=== PATIENT | male | born 1960 | race Caucasian/White ===

== ENCOUNTER 2021-02-08 11:41 | Emergency (ER) | payer MEDICARE ==
[~2021-02-08] VITALS: Ht 185.4 cm; Wt 91.0 kg
--- NOTE | 2021-02-08 11:48 | PHYS DOC ---
Adult General Chief Complaint Chief Complaint: MECHANICAL FALL HPI HPI Patient is a 60-year-old male who presents via EMS for left hip pain. This is a chronic issue. He had a total left hip replacement at [facility] years ago he says that was uncomplicated. Nonetheless, over the last several years he has had ongoing chronic left-sided hip pain. [facility]. He reports he occasionally takes Tylenol but typically drinks to numb the pain. Reports he drinks 3 beers prior to arrival today. Denies any falls or trauma or any inciting event or mechanism of injury to exacerbate his underlying chronic pain. States he just could not take it today prompting him to call EMS for transport to our facility. He does disclose that he was seen at local [place] in [place] 4 days prior and had comprehensive work-up in ER that involved labs and imaging techniques that were nonconcerning for any emergent or surgical issues. He states they did nothing for him and does not want to go back there. He is asking for oxycodone Review of Systems Review of Systems Fourteen body systems of review of systems have been reviewed. See HPI for pertinent positives and negative responses, other sultana all other systems are negative, non-pertinent or non-contributory during my food Physical Exam Physical Exam Constitutional: Appears disheveled, frail and malnourished, acutely intoxicated on exam HENT: Normocephalic, atraumatic, bilateral external ears normal, oropharynx moist, no oral exudates, nose normal. Poor dentition, smells of alcohol Eyes: PERRLA, EOMI, conjunctiva normal, no discharge. Neck: Normal range of motion, no tenderness, supple, no stridor. Cardiovascular: Heart rate regular, sinus rhythm, no murmurs rubs or gallops Lungs & Thorax: Bilateral breath sounds clear to auscultation, no respiratory distress Abdomen: Bowel sounds normal, soft, no tenderness, no masses, no pulsatile mass es. Nonsurgical abdomen, no peritoneal signs Skin: Warm, dry, no erythema, no rash. Back: No tenderness, no CVA tenderness. Extremities: No point or bony tenderness, no cyanosis, no clubbing, ROM intact, no edema. No issues with internal or external rotations of bilateral lower extremities Neurologic: Alert and oriented X 3, grossly normal motor & sensory function, no focal deficits noted. Psychologic: Affect normal, mood normal. Current Patient Data Vital Signs Vital Signs Date Time Temp Pulse Resp B/P (MAP) Pulse Ox O2 Delivery O2 Flow Rate FiO2 02/08/21 11:50 98.5 93 16 135/84 95 Room Air Vital Signs Date Time Temp Pulse Resp B/P (MAP) Pulse Ox O2 Delivery O2 Flow Rate FiO2 02/08/21 11:50 98.5 93 16 135/84 95 Room Air EKG EKG [] Radiology/Procedures Radiology/Procedures [] Heart Score C/O Chest Pain: No Risk Factors: Risk Factors: DM, Current or recent (<one month) smoker, HTN, HLP, family history of CAD, obesity. Risk Scores: Risk Factors: DM, Current or recent (<one month) smoker, HTN, HLP, family history of CAD, obesity. Course & Med Decision Making Course & Med Decision Making ABCs unremarkable. I disclosed entirety of ER findings and discussed most likely diagnosis of chronic left hip pain. I discussed and offered repeating certain aspects of prior ER visit exam such as labs and radiographs but given that patient has had no exacerbating mechanism of injury, trauma or other concerning exposure, he deferred. I disclosed I would not be giving oxycodone to him given his intoxicated state. I tried to address his ongoing alcohol abuse but patient reports he is not going to quit, he does not have any SI/HI. I again offered continued ER work-up but patient agitated and expressing that he wants to leave, despite him being intoxicated he does demonstrate full capacity. Plan of care discussed at length with need for close outpatient follow-up to review today's ER visit stressed. I advised he contact his [facility] for close outpatient follow-up. Strict return precautions were also discussed at length with good understanding by patient. Patient voiced understanding and agreement with the plan. Patient knows to come back for repeat evaluation if concerning signs or symptoms present prior to outpatient follow-up. Hemodynamically stable, ambulatory and well-appearing at time of disposition. Dragon Disclaimer Dragon Disclaimer This electronic medical record was generated, in whole or in part, using a voice recognition dictation system. Departure Departure: Impression: Primary Impression: Chronic left hip pain Additional Impression: Alcohol abuse Disposition: HOME / SELF CARE / HOMELESS Condition: STABLE Patient Instructions: Alcohol Intoxication Additional Instructions: You were seen for chronic pain of your left hip. I advise you contact your [place] primary care physician and discussed need for outpatient orthopedic referral for evaluation given your ongoing chronic pain to your left side which is where you had prior hip replacement. I also recommend you safely cut back on your alcohol abuse as ongoing use in excess has lots of short and long-term consequences. You should return to the ED if you develop worsening pain, fever, numbness, tingling, weakness, or any other new or concerning symptoms. Problem Qualifiers YOHANA BARNHART DO Feb 08, 2021 11:48
[2021-02-08 11:50] VITALS: BP 135/84
== END 2021-02-08 11:50 | disposition home or self-care (01) ==
LOC: ER 11:41
DX: M25.552 Pain in left hip (principal); G89.29 Other chronic pain; F10.10 Alcohol abuse, uncomplicated; Z96.642 Presence of left artificial hip joint
CPT/HCPCS: 99283-25

== ENCOUNTER 2021-04-21 21:38 | Emergency (ER) | payer MEDICARE ==
[~2021-04-21] VITALS: Ht 185.4 cm; Wt 91.0 kg
[2021-04-21] MEDS: IV RINGERS SOLUTION,LACTATED 1,000 ML IV SCH ×2 (22:30→23:21)
[2021-04-21 22:40] VITALS: BP 135/84
[2021-04-21] MEDS ORDERED: MVI, ADULT NO.4 WITH VIT K 10 ML, THIAMINE INJ 100 MG in IV RINGERS SOLUTION,LACTATED 1... IV ONE (23:00)
[2021-04-21] MEDS ORDERED: IV RINGERS SOLUTION,LACTATED 1,000 ML IV ONE (23:00)
[2021-04-21 23:01] LABS: BASO # 0.1 x10^3/uL (0.0-0.2); BASO % 3 % (0-3); EOS # 0.1 x10^3/uL (0.0-0.7); EOS % 1 % (0-3); HEMATOCRIT 40.4 % (39.0-53.0); HEMOGLOBIN 13.5 g/dL (13.0-17.5); LYMPH % 21 % (24-48); MEAN CORPUSCULAR HEMOGLOBIN 33 pg (25-35); MEAN CORPUSCULAR HGB CONC 33 g/dL (31-37); MEAN CORPUSCULAR VOLUME 100 fL (79-100); MONO # 0.8 x10^3/uL (0.0-1.1); MONO % 16 % (0-9); NEUT # 2.9 x10^3uL (1.8-7.7); NEUT % 59 % (31-73); PLATELET COUNT 208 x10^3/uL (140-400); RED BLOOD COUNT 4.06 x10^6/uL (4.30-5.70); RED CELL DISTRIBUTION WIDTH 15.1 % (11.5-14.5)
--- NOTE | 2021-04-21 23:10 | RAD ---
Exam: Chest one view INDICATION: Dyspnea TECHNIQUE: Frontal view of the chest Comparisons: None FINDINGS: The cardiomediastinal silhouette and pulmonary vessels are within normal limits. The lung and pleural spaces are clear. IMPRESSION: No acute cardiopulmonary process. Electronically signed by: Yani Zamora MD (04/21/2021 11:08 PM) AREN
[2021-04-21 23:15] LABS: BARBITURATES NEG (NEG); BENZODIAZEPINES NEG (NEG); CANNABINOIDS NEG (NEG); COCAINE POS (NEG); METHADONE NEG (NEG); OPIATES NEG (NEG); PHENCYCLIDINE NEG (NEG)
[2021-04-21 23:22] LABS: AMPHETAMINE/METHAMPHETAMINE NEG (NEG)
[2021-04-21 23:35] LABS: CREATININE 0.6 mg/dL (0.7-1.3); GFR 137.4; POTASSIUM 4.3 mmol/L (3.5-5.1)
[2021-04-21 23:41] LABS: ALBUMIN 3.9 g/dL (3.4-5.0); DIRECT BILIRUBIN 0.1 mg/dL (0.0-0.2); MAGNESIUM 2.3 mg/dL (1.8-2.4); TOTAL BILIRUBIN 0.3 mg/dL (0.2-1.0); TOTAL PROTEIN 7.1 g/dL (6.4-8.2)
[2021-04-22 00:08] LABS: CLARITY,URINE CLEAR; COLOR,URINE YELLOW
[2021-04-22 00:09] LABS: BACTERIA,URINE MOD /HPF (0-FEW); BILIRUBIN,URINE NEG (NEG); GLUCOSE,URINE NEG (NEG); NITRITE,URINE NEG (NEG); SQUAMOUS EPITHELIAL CELL,UR FEW /LPF; UROBILINOGEN,URINE 0.2 mg/dL (0.2 mg/dL)
--- NOTE | 2021-04-22 04:28 | PHYS DOC ---
Past History Past Medical History: Alcoholism Additional Past Medical Histor: Chronic hip pain Past Surgical History: No Surgical History Alcohol Use: Heavy General Adult EDM: Chief Complaint: ALCOHOL INTOXICATION HPI: HPI: " Residential Substance Abuse Counselor said I could get admitted here for my alcohol rehab... ". " I ve been drinking for years.. I drink about a fifth of vodka a day... I do smoke... And sometimes negative other drugs... I used to go to the [place] but they are not excepting people right now..." Patient is a 60 year old male who presents with with request for admission for alcohol rehab. Patient denies he has been drinking every ever since he was in the service. Currently he uses up to a maximum of 1 L of vodka a day. Patient does smoke. And has used other illicit substances. No recent travel. No specific ill contacts. Has not gotten flu vaccination. Has not gotten Covid vaccination. Patient denies any history immunosuppression. Patient denies any homicidal or suicidal ideation. Denies any history of alcohol withdrawal seizures. Review of Systems: Review of Systems: Constitutional: Denies fever or chills Eyes: Denies change in visual acuity HENT: Denies nasal congestion or sore throat Respiratory: Denies cough or shortness of breath Cardiovascular: Denies chest pain or edema GI: Denies abdominal pain, nausea, vomiting, bloody stools or diarrhea : Denies dysuria Musculoskeletal: Denies back pain or joint pain Integument: Denies rash Neurologic: Denies headache, focal weakness or sensory changes Endocrine: Denies polyuria or polydipsia Lymphatic: Denies swollen glands Psychiatric: Denies depression or anxiety. Requesting admission for alcohol withdrawal Family History: Family History: Noncontributory presentation Current Medications: Current Meds: Current Medications Medications (Trade) Dose Ordered Sig/Salma Start Time Stop Time Status Last Admin Dose Admin Lactated Ringer's 1,000 ml @ 1,000 mls/hr Q1H 04/21/21 22:30 04/21/21 23:25 DC 04/21/21 22:30 1,000 MLS/HR Multivitamins/ Minerals 10 ml/ Thiamine HCl 100 mg/Lactated Ringer's 1,011.3 ml @ 1,011.3 mls/hr 1X ONCE 04/21/21 23:00 04/21/21 23:25 DC Allergies: Allergies: Allergies Coded Allergies Type Severity Reaction Last Updated Verified lamotrigine Allergy Unknown 02/08/21 Yes Physical Exam: PE: Constitutional:, no acute distress, intoxicated in appearance. [] Has a smell of alcoholic beverage on his breath. HENT: Normocephalic, atraumatic, bilateral external ears normal, oropharynx moist, no oral exudates, nose mildly injected turbinates Eyes: PERRLA, EOMI, conjunctiva injected, no discharge. [] Neck: Normal range of motion, no tenderness, supple, no stridor. [] Cardiovascular: Tachycardia heart rate regular rhythm, no murmur [] bedside monitor shows sinus tachycardia Lungs & Thorax: Bilateral breath sounds equal apex with scattered wheezes on auscultation [] Abdomen: Bowel sounds normal, soft, no tenderness, no masses, no pulsatile masses. Large scar across his mid abdomen near umbilicus.-Advised he got this as a child for hernia repair Skin: Warm, dry, no erythema, no rash. [] Back: No tenderness, no CVA tenderness. [] Extremities: No tenderness, no cyanosis, no clubbing, ROM intact, no edema. [] Neurologic: Alert and oriented X 3, normal motor function, normal sensory function, no focal deficits noted. Patient is ambulatory without problems. S lightly off on balance. [id number]. No drift. Key Bed Installer equal. Slightly off on his [id number]. Psychologic: Affect flat, judgement appears to be mildly impaired, mood normal. [] Current Patient Data: Labs: Laboratory Tests Test 04/21/21 22:15 04/21/21 22:35 Urine Collection Type Unknown Urine Color Yellow Urine Clarity Clear Urine pH 7.0 Urine Specific [place] 1.020 Urine Protein Neg (NEG-TRACE) Urine Glucose (UA) Neg mg/dL (NEG) Urine Ketones (Stick) Neg mg/dL (NEG) Urine Blood Neg (NEG) Urine Nitrite Neg (NEG) Urine Bilirubin Neg (NEG) Urine Urobilinogen Dipstick 0.2 mg/dL (0.2 mg/dL) Urine Leukocyte Esterase Neg (NEG) Urine RBC 1-2 /HPF (0-2) Urine WBC 1-4 /HPF (0-4) Urine Squamous Epithelial Cells Few /LPF Urine Bacteria Mod /HPF (0-FEW) Urine Mucus Slight /LPF Urine Opiates Screen Neg (NEG) Urine Methadone Screen Neg (NEG) Urine Barbiturates Neg (NEG) Urine Phencyclidine Screen Neg (NEG) Urine Amphetamine/Methamphetamine Neg (NEG) Urine Benzodiazepines Screen Neg (NEG) Urine Cocaine Screen Pos (NEG) Urine Cannabinoids Screen Neg (NEG) Urine Ethyl Alcohol Pos (NEG) White Blood Count 5.0 x10^3/uL (4.0-11.0) Red Blood Count 4.06 x10^6/uL (4.30-5.70) L Hemoglobin 13.5 g/dL (13.0-17.5) Hematocrit 40.4 % (39.0-53.0) Mean Corpuscular Volume 100 fL (79-100) Mean Corpuscular Hemoglobin 33 pg (25-35) Mean Corpuscular Hemoglobin Concent 33 g/dL (31-37) Red Cell Distribution Width 15.1 % (11.5-14.5) H Platelet Count 208 x10^3/uL (140-400) Neutrophils (%) (Auto) 59 % (31-73) Lymphocytes (%) (Auto) 21 % (24-48) L Monocytes (%) (Auto) 16 % (0-9) H Eosinophils (%) (Auto) 1 % (0-3) Basophils (%) (Auto) 3 % (0-3) Neutrophils # (Auto) 2.9 x10^3uL (1.8-7.7) Lymphocytes # (Auto) 1.0 x10^3/uL (1.0-4.8) Monocytes # (Auto) 0.8 x10^3/uL (0.0-1.1) Eosinophils # (Auto) 0.1 x10^3/uL (0.0-0.7) Basophils # (Auto) 0.1 x10^3/uL (0.0-0.2) Activated Partial Thromboplast Time 25 SEC (23-33) Sodium Level 140 mmol/L (136-145) Potassium Level 4.3 mmol/L (3.5-5.1) Chloride Level 101 mmol/L (98-107) Carbon Dioxide Level 27 mmol/L (21-32) Anion Gap 12 (6-14) Blood Urea Nitrogen 3 mg/dL (8-26) L Creatinine 0.6 mg/dL (0.7-1.3) L Estimated GFR (Cockcroft-Gault) 137.4 Glucose Level 83 mg/dL (70-99) Calcium Level 9.0 mg/dL (8.5-10.1) Magnesium Level 2.3 mg/dL (1.8-2.4) Total Bilirubin 0.3 mg/dL (0.2-1.0) Direct Bilirubin 0.1 mg/dL (0.0-0.2) Aspartate Amino Transferase (AST) 77 U/L (15-37) H Alanine Aminotransferase (ALT) 76 U/L (16-63) H Alkaline Phosphatase 68 U/L (46-116) Creatine Kinase 77 U/L (39-308) UM-Cit-B-Type Natriuretic Peptide 149 pg/mL (0-124) H Total Protein 7.1 g/dL (6.4-8.2) Albumin 3.9 g/dL (3.4-5.0) Lipase 61 U/L (73-393) L Ethyl Alcohol Level 181 mg/dL (0-10) H Vital Signs: Vital Signs Date Time Temp Pulse Resp B/P (MAP) Pulse Ox O2 Delivery O2 Flow Rate FiO2 04/21/21 22:40 98.2 101 16 135/84 (101 98 Room Air EKG: EKG: My interpretation EKG shows a sinus rhythm at 90 bpm. No acute morphology. Time of EKG shows 22: 24 hours [] Radiology/Procedures: Radiology/Procedures: [][address] [address] IMAGING REPORT Signed PATIENT: LARRY CORDERO ACCOUNT: [id number] : 1960 LOCATION: ER AGE: 60 SEX: M EXAM STATUS: REG ER ORD. PHYSICIAN: PAMELA ANDREWS MD REASON: dyspnea PROCEDURE: PORTABLE CHEST 1V Exam: Chest one view INDICATION: Dyspnea TECHNIQUE: Frontal view of the chest Comparisons: None FINDINGS: The cardiomediastinal silhouette and pulmonary vessels are within normal limits. The lung and pleural spaces are clear. IMPRESSION: No acute cardiopulmonary process. Electronically signed by: Yani López MD (04/21/2021 11:08 PM) [facility] DICTATED AND SIGNED BY: YANI LÓPEZ MD DATE: 04/21/21 5855 CC: PAMELA ANDREWS MD; PCP,NO ~MTH0 0 Heart Score: C/O Chest Pain: No HEART Score for Chest Pain: HEART Score for Chest Pain Response (Comments) Value History Slighlty/Non-Suspicious 0 ECG Normal 0 Age >45 - < 65 1 Risk Factors 1 or 2 Risk Factors 1 Total 2 Risk Factors: Risk Factors: DM, Current or recent (<one month) smoker, HTN, HLP, family history of CAD, obesity. Risk Scores: Score 0 - 3: 2.5% MACE over next 6 weeks - Discharge Home Score 4 - 6: 20.3% MACE over next 6 weeks - Admit for Clinical Observation Score 7 - 10: 72.7% MACE over next 6 weeks - Early Invasive Strategies Course & Med Decision Making: Course & Med Decision Making Pertinent Labs and Imaging studies reviewed. (See chart for details) While waiting for labs to come back patient advised nursing to aid no longer wanted a work-up. Patient encouraged to keep follow-up at [place]. Patient encouraged to follow-up with [facility] [phone]. Patient advised to return anytime he wished to complete his evaluation and talk to a counselor about his alcohol withdrawal plans. Patient insistent on discharge. Patient amatory without problems. Patient encouraged to reduce his alcohol intake. Patient encouraged to avoid illicit drug use. Patient encouraged to stop smoking. Impression: 1. Alcohol abuse= tonight 181 2. Mild elevation LFTs AST 77, ALT is 76 3. Tobacco use 4. Drugs screen positive for cocaine use [] Dragon Disclaimer: Dragon Disclaimer: This electronic medical record was generated, in whole or in part, using a voice recognition dictation system. Departure Departure: Impression: Primary Impression: Alcohol abuse Disposition: HOME / SELF CARE / HOMELESS Condition: GUARDED Patient Instructions: Alcohol Intoxication Additional Instructions: Take a daily multivitamin. Consider follow up at [facility] - they have alcohol abuse programs. Consider follow up with [facility] [phone]. Return at any time if you whish to complete your evaluation. Dragon Disclaimer This chart was dictated in whole or in part using Voice Recognition software in a busy, high-work load, and often noisy Emergency Department environment. It may contain unintended and wholly unrecognized errors or omissions. PAMELA ANDREWS MD Apr 22, 2021 04:28
--- NOTE | 2021-04-23 03:55 | EKG ---
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
== END 2021-04-21 23:25 | disposition home or self-care (01) ==
LOC: ER 21:38
DX: F10.20 Alcohol dependence, uncomplicated (principal); G89.29 Other chronic pain; R79.89 Other specified abnormal findings of blood chemistry; F14.90 Cocaine use, unspecified, uncomplicated; Z72.0 Tobacco use; Z88.8 Allergy status to other drugs, medicaments and biological substances; Y90.6 Blood alcohol level of 120-199 mg/100 ml
CPT/HCPCS: 36415; 71045; 80048; 80076; 80307; 81001; 82550; 83690; 83735; 83880; 84443; 85025; 85730; 87086; 93005; 99285; G0480; J7120

== ENCOUNTER 2021-08-27 21:40 | Observation (INO) | payer MEDICARE ==
[~2021-08-27] VITALS: Ht 185.4 cm; Wt 68.7 kg
--- NOTE | 2021-08-27 22:47 | PHYS DOC ---
Past History Past Medical History: Alcoholism Additional Past Medical Histor: Chronic hip pain Past Surgical History: No Surgical History Alcohol Use: Heavy Adult General Chief Complaint Chief Complaint: ALCOHOL INTOXICATION HPI HPI Patient is a 60-year-old male with a past medical history significant for alcoholism who presents emergency department wanting resources to help him quit drinking. States he has been drinking 1/5 of vodka for several years, has gone through alcohol withdrawals and has had alcohol withdrawal seizures before. States he is afraid to quit drinking because of the withdrawals. States his last drink was about an hour before coming into the emergency department and has had 1/5 of vodka today. States he really does not eat much daily. Denies any recent travels, traumas, illness, fevers, chest pain, shortness of breath, abdominal pain, nausea, vomiting, vomiting, diarrhea. Denies any numbness/weakness/tingling. Review of Systems Review of Systems Review of systems otherwise unremarkable except noted in HPI Allergies Allergies Allergies Coded Allergies Type Severity Reaction Last Updated Verified lamotrigine Allergy Intermediate 08/27/21 Yes Physical Exam Physical Exam Constitutional: Well developed, well nourished, no acute distress, non-toxic appearance. [] HENT: Normocephalic, atraumatic, bilateral external ears normal, oropharynx moist, no oral exudates, nose normal. [] Eyes: conjunctiva normal, no discharge. [] Neck: Normal range of motion, no tenderness, supple, no stridor. [] Cardiovascular:Heart rate regular rhythm, no murmur [] Lungs & Thorax: No respiratory distress Abdomen: Bowel sounds normal, soft, no tenderness, no masses, no pulsatile masses. [] Skin: Warm, dry, no erythema, no rash. [] Back: No tenderness, no CVA tenderness. [] Extremities: No tenderness, no cyanosis, no clubbing, ROM intact, no edema. [] Neurologic: Alert and oriented X 3, normal motor function, normal sensory function, no focal deficits noted. [] Psychologic: Affect normal, judgement normal, mood normal. [] Current Patient Data Vital Signs Vital Signs Date Time Temp Pulse Resp B/P (MAP) Pulse Ox O2 Delivery O2 Flow Rate FiO2 08/27/21 21:44 97.9 86 20 118/73 (88) 94 Room Air EKG EKG [] Radiology/Procedures Radiology/Procedures [] Heart Score C/O Chest Pain: No Risk Factors: Risk Factors: DM, Current or recent (<one month) smoker, HTN, HLP, family history of CAD, obesity. Risk Scores: Risk Factors: DM, Current or recent (<one month) smoker, HTN, HLP, family history of CAD, obesity. Course & Med Decision Making Course & Med Decision Making Patient is a 60-year-old male with a past medical history significant for alcoholism who presents the emergency department wanting education and the resources to help him with alcohol cessation, and concern for alcohol withdrawal since he has had it before Vital signs nonconcerning. Physical exam noted above. Placed on the monitor with IV access established. Started on IV fluid resuscitation. Given some Ativan given concern for alcohol withdrawal forthcoming EKG with a rate of 81, QRS of 92, QTc of 444, no STEMI. Troponin not concerning. Laboratory analysis notable for urinary tract infection and started on antibiotics. Continued on IV fluid resuscitation. Given another dose of Ativan and started on CIWA protocol Discussed all findings with patient and recommended admission to [facility] for continued evaluation and treatment, malnourishment and alcohol abuse with concern for alcohol withdrawal. Patient grateful, verbalized understanding and agreed with plan of admission. Dragon Disclaimer Dragon Disclaimer This electronic medical record was generated, in whole or in part, using a voice recognition dictation system. Departure Departure: Impression: Primary Impression: Alcoholism Additional Impressions: Urinary tract infection Failure to thrive Disposition: ADMITTED INPATIENT Admitting Physician: Danielle Adair Condition: STABLE Referrals: PCP,NO (PCP) ART HOPKINS MD Problem Qualifiers SAULO SHEPPARD MD Aug 27, 2021 22:47
[2021-08-27] MEDS ORDERED: IV RINGERS SOLUTION,LACTATED 1,000 ML IV ONE (23:45)
--- NOTE | 2021-08-27 23:50 | RAD ---
AP chest HISTORY: Alcohol intoxication. COMPARISON: Chest x-ray April 21, 2021 FINDINGS: Heart size normal. Aortic arch calcified plaque. No pneumothorax, pulmonary opacities or pl eural effusions. Bones are unremarkable. IMPRESSION: No acute process. Electronically signed by: Alvin Baptiste MD (08/27/2021 11:47 PM) [facility]
[2021-08-28 00:03] LABS: BASO # 0.1 x10^3/uL (0.0-0.2); BASO % 2 % (0-3); EOS # 0.1 x10^3/uL (0.0-0.7); EOS % 3 % (0-3); HEMATOCRIT 41.4 % (39.0-53.0); HEMOGLOBIN 13.7 g/dL (13.0-17.5); LYMPH # 1.2 x10^3/uL (1.0-4.8); LYMPH % 27 % (24-48); MEAN CORPUSCULAR HEMOGLOBIN 35 pg (25-35); MEAN CORPUSCULAR HGB CONC 33 g/dL (31-37); MEAN CORPUSCULAR VOLUME 106 fL (79-100); MONO # 0.3 x10^3/uL (0.0-1.1); MONO % 8 % (0-9); NEUT # 2.5 x10^3uL (1.8-7.7); NEUT % 60 % (31-73); PLATELET COUNT 166 x10^3/uL (140-400); RED BLOOD COUNT 3.92 x10^6/uL (4.30-5.70); RED CELL DISTRIBUTION WIDTH 14.2 % (11.5-14.5); WHITE BLOOD COUNT 4.3 x10^3/uL (4.0-11.0)
[2021-08-28 00:17] LABS: ANION GAP 14 (6-14); BLOOD UREA NITROGEN 5 mg/dL (8-26); BUN/CREATININE RATIO 17 (6-20); CALCIUM 8.4 mg/dL (8.5-10.1); CARBON DIOXIDE 24 mmol/L (21-32); CHLORIDE 107 mmol/L (98-107); CREATININE 0.3 mg/dL (0.7-1.3); GFR > 300.0; GLUCOSE 81 mg/dL (70-99); POTASSIUM 4.8 mmol/L (3.5-5.1); SODIUM 145 mmol/L (136-145)
[2021-08-28 00:23] LABS: ALBUMIN 3.8 g/dL (3.4-5.0); ALBUMIN/GLOBULIN RATIO 1.2 (1.0-1.7); ALK PHOS 70 U/L (46-116); ALT (SGPT) 130 U/L (16-63); AST (SGOT) 166 U/L (15-37); LIPASE 54 U/L (73-393); MAGNESIUM 1.9 mg/dL (1.8-2.4); PHOSPHORUS 4.6 mg/dL (2.6-4.7); TOTAL BILIRUBIN 0.4 mg/dL (0.2-1.0); TOTAL PROTEIN 6.9 g/dL (6.4-8.2)
[2021-08-28 01:02] LABS: CLARITY,URINE CLOUDY; COLOR,URINE YELLOW; GLUCOSE,URINE NEG (NEG); NITRITE,URINE NEG (NEG); UROBILINOGEN,URINE 0.2 mg/dL (0.2 mg/dL)
[2021-08-28 01:03] LABS: BACTERIA,URINE MANY /HPF (0-FEW); SQUAMOUS EPITHELIAL CELL,UR FEW /LPF; WBC,URINE >40 /HPF (0-4)
[2021-08-28 01:06] LABS: BARBITURATES NEG (NEG); BENZODIAZEPINES NEG (NEG); CANNABINOIDS NEG (NEG); COCAINE POS (NEG); METHADONE NEG (NEG); OPIATES NEG (NEG); PHENCYCLIDINE NEG (NEG)
[2021-08-28 01:07] LABS: AMPHETAMINE/METHAMPHETAMINE NEG (NEG)
[2021-08-28] MEDS ORDERED: ONDANSETRON PF 4 MG/2 ML VIAL. IVP PRN (01:45)
[2021-08-28] MEDS ORDERED: IV NORMAL SALINE 50ML 50 ML ONE (01:52)
[2021-08-28] MEDS ORDERED: cefTRIAXone SODIUM 1 GM VIAL ONE (01:52)
[2021-08-28] MEDS ORDERED: IV RINGERS SOLUTION,LACTATED 1,000 ML IV ONE (02:00)
[2021-08-28] MEDS ORDERED: FOLIC ACID 1 MG TABLET PO ONE (02:00)
[2021-08-28] MEDS ORDERED: THIAMINE 100 MG TABLET. PO ONE (02:00)
[2021-08-28 09:20] VITALS: BP 144/82
[2021-08-28 10:42] VITALS: BP 154/87
--- NOTE | 2021-08-28 11:42 | HP ---
DATE OF SERVICE: 08/28/2021 ADMIT DATE: 08/28/2021 ATTENDING PHYSICIAN: Mamadou Grimes MD CHIEF COMPLAINT: Alcohol withdrawal. HISTORY OF PRESENT ILLNESS: The patient is a 60-year-old gentleman, chronic alcoholic. He drinks vodka, fifth a day. His last drink was yesterday. He is a little bit shaky. He has had previous delirium tremens before. No seizures. He is admitted to the ED with alcoholic withdrawal. According to the ER note, he has had seizures before. He has had multiple DTs. He has also had 4 DUIs. He is not having impending DTs now. He was admitted through our ED for further evaluation. He also is seeking alcohol detoxification program, which is available through the [place] system. I am not sure why he was deferred here. He denied any hematemesis, nausea, vomiting, diarrhea. ALLERGIES: HE HAS ALLERGIES TO LAMICTAL. CURRENT MEDICATIONS: None. SOCIAL HISTORY: He is noncompliant. Alcohol history, he drinks a fifth of vodka daily. He has no history of cirrhosis in the past. No GI bleeds. He is disabled. He lives alone. FAMILY HISTORY: Noncontributory. REVIEW OF SYSTEMS: Significant for the chronic alcohol use. He denied any active withdrawal symptoms at this time. PHYSICAL EXAMINATION: GENERAL: When I saw him, this is a chronically ill-appearing gentleman. VITAL SIGNS: Initial vital signs showed a blood pressure of 144/82, pulse is 90 and regular. He is afebrile. Oxygen saturation 95% on room air. HEENT: Head is without trauma. Pupils are reactive. Sclerae nonicteric. Oropharynx is clear. NECK: Supple. No bruits. LUNGS: Clear to auscultation. CARDIOVASCULAR: Showed regular heart tones. ABDOMEN: Soft. No guarding. EXTREMITIES: Without edema. NEUROLOGIC FINDINGS: Focally intact. Speech is fluent. PERTINENT LABORATORY STUDIES: His hemoglobin is 13.7 g/dL, MCV is obviously elevated at 106 consistent with chronic alcoholism. White count is 4300. His chemistry panel: Sodium is 145 mEq per liter, potassium 4.8, creatinine 0.3 mg/dL. Transaminases elevated with an AST of 186 and ALT of 130, bilirubin is normal at 0.4. Chest x-ray in the ED was clear. ASSESSMENT: 1. A 60-year-old gentleman, chronic alcoholic with alcohol withdrawal symptoms. 2. Chronic alcoholism. 3. Extensive history of alcohol withdrawal seizures and delirium tremens. PLAN: 1. Admit to the inpatient unit. 2. Diet as tolerated. 3. [facility] protocol. 4. Digital Media Director discussed with the patient long-term treatment plan. ELIJAH/JOVANI/LA NENA DR: Karlee TID: [id number]
[2021-08-28 14:05] VITALS: BP 159/88
[2021-08-28 20:11] VITALS: BP 165/95
[2021-08-28 22:36] VITALS: BP 163/92
--- NOTE | 2021-08-29 04:37 | EKG ---
[address] [address] Test Date: 2021-08-28 Test Time: 00:02:58 Pat Name: LARRY CORDERO Department: Room: 115 A Gender: M Logistics Director: DAYANA : 1960 Requested By: SAULO SHEPPARD Order Number: [id number] Reading MD: Measurements Intervals [place] Rate: 81 P: 14 [place]: 150 QRS: 41 QRSD: 92 T: 98 QT: 382 QTc: 444 Interpretive Statements SINUS RHYTHM T ABNORMALITY IN HIGH LATERAL LEADS ABNORMAL ECG RI6.01 No previous ECG available for comparison
[2021-08-29 05:33] VITALS: BP 157/95
[2021-08-29 06:04] LABS: BASO # 0.1 x10^3/uL (0.0-0.2); BASO % 1 % (0-3); EOS # 0.1 x10^3/uL (0.0-0.7); EOS % 2 % (0-3); HEMATOCRIT 40.2 % (39.0-53.0); HEMOGLOBIN 13.5 g/dL (13.0-17.5); LYMPH # 0.9 x10^3/uL (1.0-4.8); LYMPH % 16 % (24-48); MEAN CORPUSCULAR HEMOGLOBIN 35 pg (25-35); MEAN CORPUSCULAR HGB CONC 34 g/dL (31-37); MEAN CORPUSCULAR VOLUME 103 fL (79-100); MONO # 0.8 x10^3/uL (0.0-1.1); MONO % 14 % (0-9); NEUT # 4.1 x10^3uL (1.8-7.7); NEUT % 68 % (31-73); PLATELET COUNT 154 x10^3/uL (140-400); RED BLOOD COUNT 3.91 x10^6/uL (4.30-5.70); RED CELL DISTRIBUTION WIDTH 13.8 % (11.5-14.5); WHITE BLOOD COUNT 6.1 x10^3/uL (4.0-11.0)
[2021-08-29 06:19] LABS: CREATININE 0.5 mg/dL (0.7-1.3); GFR 169.6; POTASSIUM 3.5 mmol/L (3.5-5.1)
--- NOTE | 2021-08-29 10:05 | DS ---
DATE OF DISCHARGE: 08/29/2021 ATTENDING PHYSICIAN: Dr. Grimes. FINAL DISCHARGE DIAGNOSES: 1. Chronic alcoholism. 2. Acute alcohol intoxication. 3. History of withdrawal symptoms, stable. 4. History of alcohol withdrawal seizures in the past and delirium tremens. HISTORY AND PHYSICAL: This is a 60-year-old gentleman, chronic alcoholic. He drinks a fifth of vodka a day. He was sent to the ED with failure to thrive, weakness and chronic alcoholism. [facility] He had wanted to seek alcohol treatment. He has been depressed in the past, so he has been noncompliant. He has a provider. He does not know who that provider is. He has been on Effexor in the past, but he is not taking it right now. PHYSICAL EXAMINATION: Please see the dictated note. PERTINENT LABORATORY AND X-RAY STUDIES: Admission hemoglobin was 13.5 g/dL with a white count of 6100. MCV was 106 consistent with chronic alcoholism. Remarkably, his transaminases were not that bad. AST was 166, ALT 130. Bilirubin was 0.4. Electrolytes within normal range. Creatinine is 0.3 mg/dL. Serology negative for coronavirus. Toxicology screen positive for cocaine metabolites. COURSE IN THE HOSPITAL: The patient was admitted. He was started on a CIWA protocol. Diet was advanced. When I saw him the next day, his vital signs were stable. He had no impending DTs. He was quite sober and we had the same conversation. I wrote him a script for Ativan 1 mg b.i.d., #40. I strongly suggest a followup visit with the [facility] for psychotherapy and pharmacotherapy. Whether or not he will quit drinking remains to be seen. In any event, the patient was discharged from our hospital in a stable condition with explicit drug and followup care. ELIJAH/STEPHANIE DR: ELIJAH/brandon TID: [id number]
== END 2021-08-29 10:30 | disposition home or self-care (01) ==
LOC: ER 21:40 → ER HOLD 08-28 02:07 → INTOOBSV 08-28 02:07 → 1 SOUTH 08-28 06:25
PROVIDERS: ADMIT Internal Medicine; ATTEND Internal Medicine
DX: F10.239 Alcohol dependence with withdrawal, unspecified (principal); Z20.822 Contact with and (suspected) exposure to COVID-19; F10.229 Alcohol dependence with intoxication, unspecified; N39.0 Urinary tract infection, site not specified; R62.7 Adult failure to thrive; Z91.19 Patient's noncompliance with other medical treatment and regimen; Z79.899 Other long term (current) drug therapy; Z98.890 Other specified postprocedural states; Y90.9 Presence of alcohol in blood, level not specified
CPT/HCPCS: 36415; 71045; 80048; 80053; 80307; 81001; 82803; 83690; 83735; 84100; 84484; 85025; 87077; 87086; 87186; 87426; 93005; 96365; 96375; 96376; 99285; G0378; J0696; J2060; J7120; U0003; 96361; G0379

== ENCOUNTER 2021-10-26 03:32 | Emergency (ER) | payer MEDICARE ==
[~2021-10-26] VITALS: Ht 185.4 cm; Wt 68.7 kg
--- NOTE | 2021-10-26 03:50 | PHYS DOC ---
Past History Past Medical History: Alcoholism, Seizure Additional Past Medical Histor: Chronic hip pain (PAMELA PEREZ MD) Past Surgical History: No Surgical History (PAMELA PEREZ MD) Alcohol Use: Heavy (PAMELA PEREZ MD) General Adult EDM: Chief Complaint: ALCOHOL INTOXICATION HPI: HPI: ".. I need to get in a rehab.. program.. I ve been able to get off alcohol before.. but some time I get seizure when I quit..." Patient is a 60 year old male who presents with above hx and complaints of alcohol intoxication. Patient states he has not drank heavily for the last 12 hours. He did have 1 beer. Patient has past history of chronic alcohol abuse and alcohol withdrawal seizures. [facility]. Patient has past medical history of COPD, chronic bronchitis, alcohol dependence, tobacco dependence, chronic back pain, vitamin D deficiency, sleep apnea, restless leg syndrome, mild cognitive divot disorder, anxiety disorder, erectile dysfunction, hypoglycemia, hyperlipidemia, diabetic retinopathy, cocaine abuse, cannabis dependence, homelessness, mood disorder, anxiety disorder, stimulant abuse, prostatic hypertrophic with outflow obstruction, e xcessive cerumen in ears, constipation, major depression, schizoid personality disorder, abnormal LFTs, GERD, hypertension, chronic pain, microcytic anemia, zinc deficiency, hyponatremia, and noncompliance. Patient has had surgery for left hip replacement and repair of umbilicus hernia. Patient did get flu vaccination and COVID vaccination with booster. [facility] normally [facility] under [facility]. (PAMELA PEREZ MD) Review of Systems: Review of Systems: Constitutional: Denies fever or chills Eyes: Denies change in visual acuity HENT: Denies nasal congestion or sore throat Respiratory: Denies cough or shortness of breath Cardiovascular: Denies chest pain or edema GI: Denies abdominal pain, nausea, vomiting, bloody stools or diarrhea : Denies dysuria Musculoskeletal: Denies back pain or joint pain Integument: Denies rash Neurologic: Denies headache, focal weakness or sensory changes . Complains of agitation and spasms which he relates to possible early alcohol withdrawal symptoms. Endocrine: Denies polyuria or polydipsia Lymphatic: Denies swollen glands Psychiatric: Denies depression or anxiety (PAMELA PEREZ MD) Family History: Family History: Noncontributory to presentation (PAMELA PEREZ MD) Current Medications: Current Meds: See nursing for home meds (PAMELA PEREZ MD) Allergies: Allergies: Allergies Coded Allergies Type Severity Reaction Last Updated Verified lamotrigine Allergy Intermediate 10/26/21 Yes (PAMELA PEREZ MD) Physical Exam: PE: Constitutional: Moderate acute distress, non-toxic appearance. [] HENT: Normocephalic, atraumatic, bilateral external ears normal, oropharynx dry,, no oral exudates, nose normal. [] Eyes: PERRLA, EOMI, conjunctiva normal, no discharge. [] Neck: Normal range of motion, no tenderness, supple, no stridor. Surgical scar Cardiovascular:Heart rate regular rhythm, no murmur, PMI to left Lungs & Thorax: Bilateral breath sounds scattered wheezes on auscultation [] Abdomen: Bowel sounds decreased, soft, no tenderness, no masses, no pulsatile masses. [] Skin: Warm, dry, no erythema, no rash. Poor turgor Back: No tenderness, no CVA tenderness. [] Extremities: No tenderness, no cyanosis, no clubbing, ROM intact, no edema. Surgical scar left hip Neurologic: Alert and oriented X 3, moves all extremities on request, has distal sensory,, no focal deficits noted. DTRs +2 patella and brachial. Psychologic: Affect anxious, judgement normal, mood normal. [] (PAMELA PEREZ MD) EKG: EKG: My interpretation EKG shows a sinus rhythm at 77 bpm. No acute morphology. Time of EKG is 522 hours [] (PAMELA PEREZ MD) Radiology/Procedures: Radiology/Procedures: [][address] [address] IMAGING REPORT Signed PATIENT: LARRY CORDERO ACCOUNT: [id number] : 1960 LOCATION: ER AGE: 60 SEX: M EXAM STATUS: PRE ER ORD. PHYSICIAN: PAMELA PEREZ MD REASON: epigastric pain PROCEDURE: ACUTE ABDOMEN SERIES ACUTE ABDOMEN SERIES History: Epigastric pain. Comparison: AP chest August 27, 2021. Findings: Frontal chest and supine and upright views of the abdomen. Atherosclerotic aortic arch. Cardiomediastinal silhouette is normal. There is no pleural effusion or pneumothorax. The lungs are clear. No pneumoperitoneum is identified. No dilated air-filled loops of small bowel are seen. Bowel gas pattern is nonobstructive. Mild stool in the rectum. There is revision left hip arthroplasty. There is a metal plate lateral to the neck of the arthroplasty. This is secured with multiple cerclage wires. IMPRESSION: 1. No acute cardiopulmonary process. 2. Nonobstructive bowel gas pattern. Electronically signed by: Bert Mendez MD (10/26/2021 6:21 AM) [facility] DICTATED AND SIGNED BY: BERT MENDEZ MD DATE: 10/26/21618 CC: CECILIA DEJESUS DO; PAMELA PEREZ MD; PCP,NO ~ (PAMELA PEREZ MD) Heart Score: C/O Chest Pain: N/A Risk Factors: Risk Factors: DM, Current or recent (<one month) smoker, HTN, HLP, family history of CAD, obesity. Risk Scores: Score 0 - 3: 2.5% MACE over next 6 weeks - Discharge Home Score 4 - 6: 20.3% MACE over next 6 weeks - Admit for Clinical Observation Score 7 - 10: 72.7% MACE over next 6 weeks - Early Invasive Strategies (PAMELA PEREZ MD) Course & Med Decision Making: Course & Med Decision Making Pertinent Labs and Imaging studies reviewed. (See chart for details) Patient endorsed to at shift change. She william make Deposition Impression: 1. History of alcohol abuse 2. Alcohol withdrawal seizure history 3. Macrocytosis 102 with thrombocytopenia 78 4. Mild hypokalemia 3.4 5. Elevated AST and ALT 227/125, direct bilirubin 0.4 6. Alcohol level 208 [] (PAMELA PEREZ MD) Course & Med Decision Making This patient was initially seen by Dr. Perez. I assumed care at 0600 this morning. The patient presented with alcohol intoxication and tremors. He reported that he wanted help with his alcohol use. He was given IV banana bag, IV fluids, oral thiamine and folic acid, IV Ativan, he was also given Tylenol. Throughout most of his ED stay since my assumption of care the, the patient has been snoring and sleeping quite comfortably. He awakened after several hours. He continued to report that he wanted help with his alcoholism. He was seen by the PAT team, he agreed to inpatient detox. He was accepted for admission at [facility]. (CECILIA DEJESUS DO) Dragon Disclaimer: Dragon Disclaimer: This electronic medical record was generated, in whole or in part, using a voice recognition dictation system. (PAMELA PEREZ MD) Departure Departure: Impression: Primary Impression: Alcohol intoxication Qualified Codes: F10.929 - Alcohol use, unspecified with intoxication, unspecified Additional Impressions: Alcohol use disorder History of alcohol withdrawal delirium Disposition: 02 [facility]ORT TERM [facility]OSP[facility] ([facility]) Admitting Physician: Other (Edvin) (CECILIA DEJESUS DO) Condition: STABLE Referrals: PCP,NO (PCP) Scripts No Active Prescriptions or Reported Meds Dragon Disclaimer This chart was dictated in whole or in part using Voice Recognition software in a busy, high-work load, and often noisy Emergency Department environment. It may contain unintended and wholly unrecognized errors or omissions. (PAMELA PEREZ MD) Dragon Disclaimer This chart was dictated in whole or in part using Voice Recognition software in a busy, high-work load, and often noisy Emergency Department environment. It may contain unintended and wholly unrecognized errors or omissions. (PAMELA PEERZ MD) PAMELA PEREZ MD October 26, 2021 03:49 CECILIA DEJESUS DO October 26, 2021 16:14
[2021-10-26] MEDS ORDERED: ACETAMINOPHEN 500 MG TABLET PO ONE (04:30)
[2021-10-26] MEDS ORDERED: IV RINGERS SOLUTION,LACTATED 1,000 ML IV SCH (04:30)
[2021-10-26] MEDS ORDERED: MVI, ADULT NO.4 WITH VIT K 10 ML, THIAMINE INJ 100 MG in IV RINGERS SOLUTION,LACTATED 1... IV ONE (04:30)
[2021-10-26] MEDS ORDERED: MAGNESIUM HYDROXIDE 2,400 MG/30 ML ORAL.SUSP. PO ONE (04:30)
[2021-10-26] MEDS ORDERED: FAMOTIDINE 20 MG/2 ML VIAL IVP ONE (04:30)
[2021-10-26] MEDS ORDERED: FOLIC ACID 1 MG TABLET PO ONE (04:45)
[2021-10-26] MEDS ORDERED: MVI, ADULT NO.4 WITH VIT K 10 ML VIAL IV ONE (04:57)
[2021-10-26] MEDS ORDERED: THIAMINE 200 MG/2 ML VIAL. IV ONE (04:58)
[2021-10-26 06:10] LABS: BASO # 0.1 x10^3/uL (0.0-0.2); BASO % 2 % (0-3); EOS # 0.1 x10^3/uL (0.0-0.7); EOS % 2 % (0-3); HEMATOCRIT 40.4 % (39.0-53.0); HEMOGLOBIN 13.7 g/dL (13.0-17.5); LYMPH # 1.1 x10^3/uL (1.0-4.8); LYMPH % 29 % (24-48); MEAN CORPUSCULAR HEMOGLOBIN 35 pg (25-35); MEAN CORPUSCULAR HGB CONC 34 g/dL (31-37); MEAN CORPUSCULAR VOLUME 102 fL (79-100); MONO # 0.4 x10^3/uL (0.0-1.1); MONO % 12 % (0-9); NEUT # 2.1 x10^3uL (1.8-7.7); NEUT % 56 % (31-73); PLATELET COUNT 78 x10^3/uL (140-400); RED BLOOD COUNT 3.95 x10^6/uL (4.30-5.70); RED CELL DISTRIBUTION WIDTH 13.5 % (11.5-14.5); WHITE BLOOD COUNT 3.7 x10^3/uL (4.0-11.0)
[2021-10-26 06:18] LABS: CALCIUM 8.9 mg/dL (8.5-10.1); CREATININE 0.6 mg/dL (0.7-1.3); GFR 137.4; POTASSIUM 3.4 mmol/L (3.5-5.1)
--- NOTE | 2021-10-26 06:24 | RAD ---
ACUTE ABDOMEN SERIES History: Epigastric pain. Comparison: AP chest August 27, 2021. Findings: Frontal chest and supine and upright views of the abdomen. Atherosclerotic aortic arch. Cardiomediastinal silhouette is normal. There is no pleural effusion or pneumothorax. The lungs are clear. No pneumoperitoneum is identified. No dilated air-filled loops of small bowel are seen. Bowel gas pat tern is nonobstructive. Mild stool in the rectum. There is revision left hip arthroplasty. There is a metal plate lateral to the neck of the arthroplas ty. This is secured with multiple cerclage wires. IMPRESSION: 1. No acute cardiopulmonary process. 2. Nonobstructive bowel gas pattern. Electronically signed by: Bert Mendez MD (10/26/2021 6:21 AM) [facility]
[2021-10-26 06:29] LABS: INFLUENZA A PATIENT NEGATIVE (NEGATIVE); INFLUENZA B PATIENT NEGATIVE (NEGATIVE)
[2021-10-26 06:30] LABS: ALBUMIN 3.9 g/dL (3.4-5.0); DIRECT BILIRUBIN 0.4 mg/dL (0.0-0.2); MAGNESIUM 2.1 mg/dL (1.8-2.4); TOTAL BILIRUBIN 0.9 mg/dL (0.2-1.0); TOTAL PROTEIN 7.6 g/dL (6.4-8.2)
[2021-10-26 17:40] VITALS: BP 152/90
[2021-10-26] MEDS ORDERED: LORazepam 1 MG TABLET PO ONE (18:45)
== END 2021-10-26 18:45 | disposition short-term general hospital (02) ==
LOC: ER 03:32
DX: F10.229 Alcohol dependence with intoxication, unspecified (principal); D75.89 Other specified diseases of blood and blood-forming organs; D69.6 Thrombocytopenia, unspecified; E87.6 Hypokalemia; R79.89 Other specified abnormal findings of blood chemistry; G89.29 Other chronic pain; J44.9 Chronic obstructive pulmonary disease, unspecified; E78.5 Hyperlipidemia, unspecified; E11.319 Type 2 diabetes mellitus with unspecified diabetic retinopathy without macular edema; K21.9 Gastro-esophageal reflux disease without esophagitis; I10 Essential (primary) hypertension; Z20.822 Contact with and (suspected) exposure to COVID-19; Z86.2 Personal history of diseases of the blood and blood-forming organs and certain disorders involving the immune mechanism; Z88.8 Allergy status to other drugs, medicaments and biological substances; Y90.7 Blood alcohol level of 200-239 mg/100 ml
CPT/HCPCS: 36415; 74022; 80048; 80076; 82550; 83690; 83735; 83880; 84484; 85025; 85730; 87428; 93005; 96365; 96366; 96375; 99285; C9803; G0480; J2060; J3490; J7120; U0003